=== PATIENT | female | born 1935 | race Caucasian/White ===

== ENCOUNTER 2022-10-14 20:18 | Inpatient (IN) | payer MEDICARE, OTHER ==
[~2022-10-14] VITALS: Ht 165.1 cm; Wt 70.5 kg
[~2022-10-14 20:18] MED LIST: ASCO-238 PO; ATOR10TA PO; CALC1TAB PO; CHLO25CA10 PO; CYAN500T71 PO; CYCL-1 PO; HYDR25TA4 PO; IBUP-24 PO; MULT-620 PO; PIOG15TA8 PO; POTA10TA15 PO; VALS160T30 PO
[2022-10-14] MEDS ORDERED: acetaminophen 1,000mg/100ml IV 100 ML IV STA (22:17)
[2022-10-14 22:49] LABS: BASOPHILS % (AUTO) 0.2 % (0-1); EOSINOPHILS % (AUTO) 0 % (0-6); HEMATOCRIT 34.6 % (35.0-45.0); HEMOGLOBIN 11.5 g/dl (12.0-16.0); LYMPHOCYTES # (AUTO) 0.3 X10'3 (1.1-4.8); LYMPHOCYTES % (AUTO) 3.2 % (21-51); MEAN CORPUSCULAR HEMOGLOBIN 32.8 PG (27.0-31.0); MEAN CORPUSCULAR HGB CONC 33.1 g/dL (33.0-36.5); MEAN CORPUSCULAR VOLUME 98.9 FL (78-98); MEAN PLATELET VOLUME 7.7 FL (7.4-10.4); MONOCYTES # (AUTO) 0.6 X10'3 (0-0.9); MONOCYTES % (AUTO) 7.4 % (2-12); NEUTROPHILS # (AUTO) 7.6 X10'3 (1.8-7.7); NEUTROPHILS % (AUTO) 89.2 % (42-75); PLATELET COUNT 108 X10'3 (140-440); RED CELL DISTRIBUTION WIDTH 13.9 % (11.5-14.5); WHITE BLOOD COUNT 8.5 X10'3 (4.5-11.0)
--- NOTE | 2022-10-14 23:00 | NUR ---
Patient to xray.
[2022-10-14 23:01] LABS: ALANINE AMINOTRANSFERASE 70 U/L (12-78); ALBUMIN 3.2 G/DL (3.4-5.0); ALBUMIN/GLOBULIN RATIO 1.2 (1.1-1.5); ALKALINE PHOSPHATASE 59 IU/L (46-116); ANION GAP 10 (8-16); ASPARTATE AMINO TRANSFERASE 113 U/L (10-37); BILIRUBIN,TOTAL 0.7 MG/DL (0.1-1.0); BLOOD UREA NITROGEN 27 MG/DL (7-18); CALCIUM 8.5 MG/DL (8.5-10.1); CHLORIDE 86 MMOL/L (99-107); CREATININE 1.23 MG/DL (0.40-0.90); GLUCOSE 113 MG/DL (70-104); POTASSIUM 4.7 MMOL/L (3.5-5.1); TOTAL CARBON DIOXIDE 23.2 MMOL/L (24-32); TOTAL PROTEIN 5.9 G/DL (6.4-8.2); eGFR 41 ML/MIN
[2022-10-14 23:17] LABS: SODIUM 119 MMOL/L (135-145)
--- NOTE | 2022-10-14 23:22 | NUR ---
Back from xray.
[2022-10-14 23:44] LABS: CLARITY,URINE CLEAR (Clear); COLOR,URINE YELLOW (Yellow); GLUCOSE, URINE NEGATIVE (Neg); KETONES,URINE NEGATIVE (Neg); LEUKOCYTE ESTERASE ,URINE NEGATIVE (Neg); NITRITES, URINE NEGATIVE (Neg); OCCULT BLOOD,URINE NEGATIVE (Neg); PROTEIN,URINE NEGATIVE (Neg); UROBILINOGEN,URINE 0.2 E.U/dL (0.2-1.0)
[2022-10-14 23:50] LABS: UA COLLECTION TYPE STRAIGHT CATH
[2022-10-15] VITALS (8 sets, daily range): BP systolic 128–151; BP diastolic 53–58; PULSE 52–72; RESP 12–24; TEMP 97.2–98.7; O2SAT 95–100
[2022-10-15] MEDS ORDERED: normal saline 1000ML IV soln IVB ONE (00:20)
[2022-10-15] MEDS ORDERED: VALS80TA32 PO (01:09)
[2022-10-15] MEDS ORDERED: TOBR5DRO7 LEFTEYE (01:09)
[2022-10-15] MEDS ORDERED: SULF1TAB45 PO (01:09)
[2022-10-15] MEDS ORDERED: FURO-150 PO (01:09)
[2022-10-15] MEDS ORDERED: mag hydrox/Alum hydrox/simeth 30ml oral suspension PO PRN (01:10)
[2022-10-15] MEDS ORDERED: ondansetron 4mg rapidly disintigrating tab PO PRN (01:10)
[2022-10-15] MEDS ORDERED: acetaminophen 325mg tablet PO PRN (01:10)
[2022-10-15] MEDS ORDERED: acetaminophen 650mg rectal suppository RC PRN (01:10)
[2022-10-15] MEDS ORDERED: potassium Cl 20 mEq SR tablet PO PRN ×2 (01:10)
[2022-10-15] MEDS ORDERED: ondansetron/PF 4mg/2ml inj IV PRN (01:10)
[2022-10-15] MEDS ORDERED: magnesium hydroxide 30ml (MOM) UD suspension PO PRN (01:10)
[2022-10-15] MEDS ORDERED: magnesium 4gm in 100ml NS 100 ML IV PRN (01:10)
[2022-10-15] MEDS ORDERED: magnesium 2GM in 50ml NS 50 ML IV PRN (01:10)
[2022-10-15] MEDS ORDERED: potassium Cl 40MEQ/1/2NS 520ml 520 ML IV PRN (01:10)
[2022-10-15] MEDS ORDERED: magnesium Cl slow-release 64mg tablet PO PRN (01:10)
[2022-10-15] MEDS ORDERED: bisacodyl 10mg suppository rectal RC PRN (01:10)
[2022-10-15] MEDS ORDERED: PERFLUTREN PROTEIN-A MICROSPHR (Optison) 0.22 MG/ML 3ML VIAL IV PRN (03:05)
[2022-10-15] MEDS: normal saline 1000ml 1,000 ML IV SCH ×3 (04:58→21:10)
--- NOTE | 2022-10-15 06:00 | NUR ---
Patient in room PCU 3024. I have received report from Elisabeth GABRIEL and had the opportunity to ask questions and assume patient care.
--- NOTE | 2022-10-15 06:00 | NUR ---
Patient in room PCU 3024. I have received report from Elisabeth GABRIEL and had the opportunity to ask questions and assume patient care.
--- NOTE | 2022-10-15 06:39 | NUR ---
Problems reprioritized. Patient report given, questions answered & plan of care reviewed with Tila.
[2022-10-15 06:48] LABS: POTASSIUM 4.6 MMOL/L (3.5-5.1)
[2022-10-15] MEDS: K and/or MAG REPLACEMENT MC SCH ×2 (08:00→20:00)
[2022-10-15 08:09] LABS: ANION GAP 9 (8-16); BLOOD UREA NITROGEN 23 MG/DL (7-18); BUN/CREATININE RATIO 21.9 (10.0-20.0); CALCIUM 8.1 MG/DL (8.5-10.1); CHLORIDE 89 MMOL/L (99-107); CREATININE 1.05 MG/DL (0.40-0.90); GLUCOSE 96 MG/DL (70-104); TOTAL CARBON DIOXIDE 20.8 MMOL/L (24-32); eGFR 49 ML/MIN
[2022-10-15 08:21] LABS: SODIUM 119 MMOL/L (135-145)
[2022-10-15] MEDS: docusate sod 100mg capsule PO SCH ×2 (08:25→20:17)
--- NOTE | 2022-10-15 08:36 | NUR ---
Sent to Dr Cade - 90[facility]L [facility] [address] Tila [phone]
--- NOTE | 2022-10-15 09:57 | NUR ---
Faxed current med list to pharmacy
[2022-10-15] MEDS: acetaminophen 325mg tablet PO PRN (13:18)
--- NOTE | 2022-10-15 13:34 | NUR ---
PRESSURE ULCER EDUCATION: DEFINITION: A pressure ulcer is an area of skin that breaks down when you stay in one position too long. The constant pressure against the skin reduces the blood flow to that area and the affected tissue dies. CAUSES: "Being bedridden or in a wheelchair "Fragile skin "Having a chronic condition, such as diabetes or vascular disease "Inability to move certain parts of your body without assistance "Older age "Incontinence of urine or stool SYMPTOMS: "A reddened area that DOES NOT turn white when pressed on - this can be the beginning of a pressure ulcer "A blister, deep sore or a crater - these can be advanced pressure ulcers FIRST AID: "Relieve the pressure on this area "Keep the area clean and dry "Call your primary doctor if you see any of the above symptoms "DO NOT massage the area "DO NOT use a donut shaped or ring shaped pillow- these actually interfere with the blood flow and cause complications PREVENTION: "Check for pressure ulcers everyday "Change position at least every two hours to relieve pressure "Use items that help relieve pressure- pillows, sheepskin, foam padding, and powders. "Keep skin clean and dry "Eat healthy well balanced meals "Exercise daily IF YOU SEE ANY OF THESE SYMPTOMS WHILE IN THE HOSPITAL - TELL YOUR NURSE IMMEDIATELY. IF YOU SEE ANY OF THESE SYMPTOMS WHILE AT HOME OR HAVE ANY QUESTIONS OR CONCERNS ABOUT PRESSURE ULCERS - CALL YOUR PRIMARY DOCTOR IMMEDIATELY. Addendum: 10/15/22 at 1334 by Kiesha Bustamante LVN Amended: Links added.
--- NOTE | 2022-10-15 17:50 | NUR ---
Sent to Dr Cade - 1249Y [facility] brought some home meds and wants to cont them starting at hs today. Sulfa and Tobramycin - the pharmacy has both. Tila [phone]
--- NOTE | 2022-10-15 18:36 | NUR ---
Problems reprioritized. Patient report given, questions answered & plan of care reviewed with Lucia GABRIEL.
[2022-10-15] MEDS ORDERED: temazepam 15mg capsule PO PRN (21:00)
[2022-10-16] VITALS (7 sets, daily range): BP systolic 139–169; BP diastolic 47–65; PULSE 64–77; RESP 13–21; TEMP 97–98; O2SAT 95–100
[2022-10-16] MEDS: normal saline 1000ml 1,000 ML IV SCH ×2 (00:23→17:28)
[2022-10-16] MEDS ORDERED: hydrALAZINE 20mg/ml inj. IV PRN (05:40)
--- NOTE | 2022-10-16 05:41 | NUR ---
MESSAGE TO MD: Neena Little in rm 3027d has b/p of 169/68 with hr of 71 .Elisabeth u [id number]. New order by is to give hydralazine 10mg iv 6hly prn for b/p morethan 160.
--- NOTE | 2022-10-16 06:00 | NUR ---
Patient in room PCU 3024. I have received report from Eliasbeth GABRIEL and had the opportunity to ask questions and assume patient care.
--- NOTE | 2022-10-16 06:00 | NUR ---
Patient in room PCU 3024. I have received report from Elisabeth GABRIEL and had the opportunity to ask questions and assume patient care.
--- NOTE | 2022-10-16 06:26 | NUR ---
Problems reprioritized. Patient report given, questions answered & plan of care reviewed with Felicia
[2022-10-16 06:50] LABS: BASOPHILS % (AUTO) 0.6 % (0-1); EOSINOPHILS # (AUTO) 0.1 X10'3 (0-0.9); EOSINOPHILS % (AUTO) 1.2 % (0-6); HEMATOCRIT 34.3 % (35.0-45.0); HEMOGLOBIN 11.7 g/dl (12.0-16.0); LYMPHOCYTES # (AUTO) 0.4 X10'3 (1.1-4.8); LYMPHOCYTES % (AUTO) 8.9 % (21-51); MEAN CORPUSCULAR HEMOGLOBIN 33.4 PG (27.0-31.0); MEAN CORPUSCULAR VOLUME 98.2 FL (78-98); MEAN PLATELET VOLUME 7.8 FL (7.4-10.4); MONOCYTES # (AUTO) 0.6 X10'3 (0-0.9); MONOCYTES % (AUTO) 13.1 % (2-12); NEUTROPHILS # (AUTO) 3.5 X10'3 (1.8-7.7); NEUTROPHILS % (AUTO) 76.2 % (42-75); PLATELET COUNT 96 X10'3 (140-440); RED CELL DISTRIBUTION WIDTH 13.9 % (11.5-14.5); WHITE BLOOD COUNT 4.6 X10'3 (4.5-11.0)
[2022-10-16 07:20] LABS: ALANINE AMINOTRANSFERASE 63 U/L (12-78); ALBUMIN 2.9 G/DL (3.4-5.0); ALKALINE PHOSPHATASE 60 IU/L (46-116); ANION GAP 11 (8-16); ASPARTATE AMINO TRANSFERASE 82 U/L (10-37); BILIRUBIN,TOTAL 0.5 MG/DL (0.1-1.0); BLOOD UREA NITROGEN 13 MG/DL (7-18); BUN/CREATININE RATIO 17.8 (10.0-20.0); CALCIUM 7.8 MG/DL (8.5-10.1); CHLORIDE 92 MMOL/L (99-107); CREATININE 0.73 MG/DL (0.40-0.90); GLUCOSE 98 MG/DL (70-104); MAGNESIUM 1.9 MG/DL (1.5-2.4); POTASSIUM 4.1 MMOL/L (3.5-5.1); SODIUM 122 MMOL/L (135-145); TOTAL CARBON DIOXIDE 19.2 MMOL/L (24-32); TOTAL PROTEIN 5.7 G/DL (6.4-8.2); eGFR 75 ML/MIN
[2022-10-16 07:26] LABS: PLATELET ESTIMATE DECREASED
[2022-10-16 07:27] LABS: BURR CELLS 1+; ELLIPTOCYTES FEW
[2022-10-16] MEDS: K and/or MAG REPLACEMENT MC SCH ×2 (08:00→20:00)
[2022-10-16] MEDS: acetaminophen 325mg tablet PO PRN (08:02)
[2022-10-16] MEDS: docusate sod 100mg capsule PO SCH ×2 (08:02→21:27)
[2022-10-16] MEDS ORDERED: chlordiazePOXIDE 25mg capsule PO PRN (09:35)
[2022-10-16] MEDS: tobramycin/dexamethasone ophthalmic suspension LEFTEYE SCH ×3 (13:00→21:33)
--- NOTE | 2022-10-16 16:29 | NUR ---
Patient resting in bed. No acute changes this shift. currrently working with therapy with front wheel walker. Alert. Sodium levels increased this shift, MD monitoring until tomorrow. Tylenol given for pain. All safety measures in place and call light in reach. Will continue to monitor.
--- NOTE | 2022-10-16 18:33 | NUR ---
Problems reprioritized. Patient report given, questions answered & plan of care reviewed with Hope Franklin RN.
--- NOTE | 2022-10-16 18:35 | NUR ---
Patient in room PCU 3024. I have received report from YOLANDA MERCEDES and had the opportunity to ask questions and assume patient care.
[2022-10-16] MEDS: losartan 50mg tablet PO SCH (21:28)
[2022-10-17] VITALS (7 sets, daily range): BP systolic 136–174; BP diastolic 54–74; PULSE 63–78; RESP 15–21; TEMP 97–98; O2SAT 96–98
[2022-10-17] MEDS: normal saline 1000ml 1,000 ML IV SCH (03:56)
--- NOTE | 2022-10-17 06:10 | NUR ---
Problems reprioritized. Patient report given, questions answered & plan of care reviewed with YOLANDA MERCEDES.
[2022-10-17 07:30] LABS: BASOPHILS % (AUTO) 0.5 % (0-1); EOSINOPHILS # (AUTO) 0.1 X10'3 (0-0.9); EOSINOPHILS % (AUTO) 1.6 % (0-6); HEMATOCRIT 31.5 % (35.0-45.0); HEMOGLOBIN 10.6 g/dl (12.0-16.0); LYMPHOCYTES # (AUTO) 0.5 X10'3 (1.1-4.8); LYMPHOCYTES % (AUTO) 10.7 % (21-51); MEAN CORPUSCULAR HEMOGLOBIN 33.1 PG (27.0-31.0); MEAN CORPUSCULAR HGB CONC 33.7 g/dL (33.0-36.5); MEAN CORPUSCULAR VOLUME 98.2 FL (78-98); MEAN PLATELET VOLUME 7.7 FL (7.4-10.4); MONOCYTES # (AUTO) 0.5 X10'3 (0-0.9); MONOCYTES % (AUTO) 12.6 % (2-12); NEUTROPHILS # (AUTO) 3.2 X10'3 (1.8-7.7); NEUTROPHILS % (AUTO) 74.6 % (42-75); PLATELET COUNT 99 X10'3 (140-440); RED BLOOD COUNT 3.21 X10'6 (4.20-5.60); RED CELL DISTRIBUTION WIDTH 14.2 % (11.5-14.5); WHITE BLOOD COUNT 4.3 X10'3 (4.5-11.0)
[2022-10-17 07:49] LABS: ALANINE AMINOTRANSFERASE 55 U/L (12-78); ALBUMIN 2.6 G/DL (3.4-5.0); ALKALINE PHOSPHATASE 51 IU/L (46-116); ANION GAP 12 (8-16); ASPARTATE AMINO TRANSFERASE 58 U/L (10-37); BILIRUBIN,TOTAL 0.6 MG/DL (0.1-1.0); BLOOD UREA NITROGEN 10 MG/DL (7-18); BUN/CREATININE RATIO 19.6 (10.0-20.0); CALCIUM 7.8 MG/DL (8.5-10.1); CHLORIDE 94 MMOL/L (99-107); CREATININE 0.51 MG/DL (0.40-0.90); GLUCOSE 121 MG/DL (70-104); MAGNESIUM 1.7 MG/DL (1.5-2.4); POTASSIUM 3.9 MMOL/L (3.5-5.1); SODIUM 125 MMOL/L (135-145); TOTAL CARBON DIOXIDE 18.7 MMOL/L (24-32); TOTAL PROTEIN 5.1 G/DL (6.4-8.2); eGFR > 90 ML/MIN
[2022-10-17] MEDS: K and/or MAG REPLACEMENT MC SCH ×2 (08:00→20:00)
[2022-10-17] MEDS: ascorbic acid 500mg tablet PO SCH (08:01)
[2022-10-17] MEDS: cyanocobalamin 500mcg tablet PO SCH (08:01)
[2022-10-17] MEDS: tobramycin/dexamethasone ophthalmic suspension LEFTEYE SCH ×4 (08:01→20:54)
[2022-10-17] MEDS: calcium carbonate/vitamin D3 tablet PO SCH (08:01)
[2022-10-17] MEDS: potassium chloride 10mEq ER tablet PO SCH (08:02)
[2022-10-17] MEDS: atorvastatin 10mg tablet PO SCH (08:02)
[2022-10-17] MEDS: docusate sod 100mg capsule PO SCH ×2 (08:02→20:00)
[2022-10-17] MEDS: multivitamins, therapeutics tablet PO SCH (08:02)
--- NOTE | 2022-10-17 17:17 | NUR ---
Patient laying in bed at this time. Patient has had three episode of diarrhea please hold stool softener. All wound care completed as ordered. arm and leg wrapped with gauze. dressing secure. fluids continue @ 100ml/hr. All safety measures in place and call light in reach.will report to night nurse.
--- NOTE | 2022-10-17 18:10 | NUR ---
Patient in room PCU 3024. I have received report from YOLANDA MERCEDES and had the opportunity to ask questions and assume patient care.
[2022-10-17] MEDS: losartan 50mg tablet PO SCH (20:55)
--- NOTE | 2022-10-18 06:10 | NUR ---
Problems reprioritized. Patient report given, questions answered & plan of care reviewed with YOLANDA MERCEDES.
[2022-10-18 06:47] LABS: BASOPHILS % (AUTO) 0.4 % (0-1); EOSINOPHILS # (AUTO) 0.1 X10'3 (0-0.9); EOSINOPHILS % (AUTO) 2.5 % (0-6); HEMOGLOBIN 10.6 g/dl (12.0-16.0); LYMPHOCYTES # (AUTO) 0.7 X10'3 (1.1-4.8); LYMPHOCYTES % (AUTO) 14.4 % (21-51); MEAN CORPUSCULAR HEMOGLOBIN 33.6 PG (27.0-31.0); MEAN CORPUSCULAR VOLUME 98.7 FL (78-98); MEAN PLATELET VOLUME 7.7 FL (7.4-10.4); MONOCYTES # (AUTO) 0.6 X10'3 (0-0.9); MONOCYTES % (AUTO) 12.1 % (2-12); NEUTROPHILS # (AUTO) 3.6 X10'3 (1.8-7.7); NEUTROPHILS % (AUTO) 70.6 % (42-75); PLATELET COUNT 111 X10'3 (140-440); RED BLOOD COUNT 3.14 X10'6 (4.20-5.60); RED CELL DISTRIBUTION WIDTH 14.2 % (11.5-14.5); WHITE BLOOD COUNT 5.1 X10'3 (4.5-11.0)
[2022-10-18 06:59] VITALS: BP 174/60; PULSE 68; RESP 16; TEMP 98; O2SAT 97
[2022-10-18 07:12] LABS: ALANINE AMINOTRANSFERASE 49 U/L (12-78); ALBUMIN 2.7 G/DL (3.4-5.0); ALBUMIN/GLOBULIN RATIO 1.2 (1.1-1.5); ALKALINE PHOSPHATASE 56 IU/L (46-116); ANION GAP 9 (8-16); ASPARTATE AMINO TRANSFERASE 48 U/L (10-37); BILIRUBIN,TOTAL 0.8 MG/DL (0.1-1.0); BLOOD UREA NITROGEN 8 MG/DL (7-18); BUN/CREATININE RATIO 13.3 (10.0-20.0); CALCIUM 7.9 MG/DL (8.5-10.1); CHLORIDE 96 MMOL/L (99-107); GLUCOSE 113 MG/DL (70-104); MAGNESIUM 1.7 MG/DL (1.5-2.4); POTASSIUM 3.6 MMOL/L (3.5-5.1); SODIUM 125 MMOL/L (135-145); TOTAL CARBON DIOXIDE 20.2 MMOL/L (24-32); eGFR > 90 ML/MIN
[2022-10-18] MEDS: K and/or MAG REPLACEMENT MC SCH (08:00)
[2022-10-18] MEDS: tobramycin/dexamethasone ophthalmic suspension LEFTEYE SCH ×2 (08:04→13:09)
[2022-10-18] MEDS: cyanocobalamin 500mcg tablet PO SCH (08:05)
[2022-10-18] MEDS: multivitamins, therapeutics tablet PO SCH (08:05)
[2022-10-18] MEDS: potassium chloride 10mEq ER tablet PO SCH (08:05)
[2022-10-18] MEDS: docusate sod 100mg capsule PO SCH (08:05)
[2022-10-18] MEDS: ascorbic acid 500mg tablet PO SCH (08:05)
[2022-10-18] MEDS: atorvastatin 10mg tablet PO SCH (08:05)
[2022-10-18] MEDS: calcium carbonate/vitamin D3 tablet PO SCH (08:06)
--- NOTE | 2022-10-18 16:33 | NUR ---
patient discharged to [facility] by transport. Report given. All belongings and paper work left with patient.
== END 2022-10-18 16:55 | DRG 640 ==
LOC: ER 20:19 → ED HOLD 10-15 01:14 → PCU 3S 10-15 04:12
PROVIDERS: ADMIT Family Medicine; ATTEND Family Medicine
DX: E87.1 Hypo-osmolality and hyponatremia (principal); I21.A1 Myocardial infarction type 2; N17.0 Acute kidney failure with tubular necrosis; I13.0 Hypertensive heart and chronic kidney disease with heart failure and stage 1 through stage 4 chronic kidney disease, or unspecified chronic kidney disease; Z66 Do not resuscitate; D53.9 Nutritional anemia, unspecified; I50.9 Heart failure, unspecified; N18.9 Chronic kidney disease, unspecified; Z60.2 Problems related to living alone; E04.1 Nontoxic single thyroid nodule; W07.XXXA Fall from chair, initial encounter; E11.22 Type 2 diabetes mellitus with diabetic chronic kidney disease; E78.00 Pure hypercholesterolemia, unspecified; I48.91 Unspecified atrial fibrillation; G89.29 Other chronic pain; M54.9 Dorsalgia, unspecified; R29.6 Repeated falls; M25.551 Pain in right hip; M25.552 Pain in left hip; Z85.828 Personal history of other malignant neoplasm of skin; Y93.89 Activity, other specified; Y92.89 Other specified places as the place of occurrence of the external cause; Y99.8 Other external cause status; Z79.01 Long term (current) use of anticoagulants; Z79.899 Other long term (current) drug therapy
CPT/HCPCS: 36415; 70450; 71045; 72192; 73521; 73552; 80048; 80053; 81003; 82948; 83605; 83735; 84484; 85008; 85025; 85610; 87040; 87081; 93005; 93306; 97110; 97116; 97161; 97530; 97535; 99285; A4353; A6212; A6213; A6223; A6258; A6446; A6449; G0378; J0131; J0360; J7030